=== PATIENT | male | born 1985 | race Hispanic/Latino ===

== ENCOUNTER 2016-05-16 04:58 | Emergency (ER) | payer SELFPAY ==
[2016-05-16] MEDS ORDERED: Azithromycin 250 MG TAB ONE (05:53)
== END 2016-05-16 05:50 | disposition home or self-care (01) ==
LOC: BURERS 04:58
DX: J02.9 Acute pharyngitis, unspecified (principal)
CPT/HCPCS: 87081; 87430; 99283

== ENCOUNTER 2024-03-22 19:18 | Emergency (ER) | payer SELFPAY | END 2024-03-22 19:55 | disposition left against medical advice (07) | LOC: BURERS 19:18 | DX: Z53.21 Procedure and treatment not carried out due to patient leaving prior to being seen by health care provider (principal) ==

== ENCOUNTER 2024-11-12 02:58 | Emergency (ER) | payer BC, SELFPAY ==
[2024-11-12] MEDS ORDERED: Lidocaine 1% (PF) 30 ML VIAL ONE (03:44)
== END 2024-11-12 03:58 | disposition home or self-care (01) ==
LOC: BURERS 02:58
DX: T16.1XXA Foreign body in right ear, initial encounter (principal); I10 Essential (primary) hypertension; F17.290 Nicotine dependence, other tobacco product, uncomplicated
CPT/HCPCS: 69200; 99282